=== PATIENT | male | born 1950 | race Caucasian/White ===

== ENCOUNTER 2017-10-27 09:48 | Emergency (ER) | payer MEDICARE, OTHER ==
[2017-10-27 10:20] LABS: #Basophils 0.1 thou/uL (0.0-0.2); #Eosinphils 0.2 thou/uL (0.0-0.7); #Lymphocytes 1.4 thou/uL (1.20-3.40); #Monocytes 0.6 thou/uL (0.11-0.59); #Neutrophils 4.6 thou/uL (1.40-6.50); %Basophils 1.5 % (0.0-1.0); %Eosinophils 2.6 % (0.0-10.0); %Lymphocytes 20.3 % (21.0-51.0); %Monocytes 8.2 % (0.0-10.0); %Neutrophils 67.4 % (42.0-75.0); Hemoglobin 15.3 g/dL (14.0-18.0); Mean Corpuscular HGB CONC 33.9 g/dL (32.0-36.0); Mean Corpuscular Hemoglobin 32.1 pg (27.0-31.0); Mean Corpuscular Volume 94.6 fL (78.0-98.0); Mean Platelet Volume 8.3 fL (7.4-10.4); Platelet Count 257 thou/uL (130-400); RBC Distribution Width 11.1 % (11.5-14.5); Red Blood Cell (RBC) Count 4.78 mill/uL (4.70-6.10); White Blood Cell (WBC) Count 6.8 thou/uL (4.8-10.8)
[2017-10-27 10:43] LABS: ALT (SGPT) 17 U/L (8-55); AST (SGOT) 21 U/L (5-34); Albumin 4.6 g/dL (3.4-4.8); Alkaline Phosphatase 64 U/L (40-150); Anion Gap 12 mmol/L (10-20); BUN (Urea Nitrogen) 29 mg/dL (8.4-25.7); Bilirubin, Total 0.7 mg/dL (0.2-1.2); Calc. Creatinine Clearance 0 mL/min (70-130); Calcium 9.2 mg/dL (7.8-10.44); Carbon Dioxide 27 mmol/L (23-31); Chloride 102 mmol/L (98-107); Estimated GFR-MDRD 67; Globulin 3.2 g/dL (2.4-3.5); Glucose 109 mg/dL (80-115); Potassium 4.4 mmol/L (3.5-5.1); Protein, Total 7.8 g/dL (5.8-8.1); Sodium 137 mmol/L (136-145)
== END 2017-10-27 11:30 | disposition home or self-care (01) ==
LOC: ERS 09:48
DX: K62.5 Hemorrhage of anus and rectum (principal); E11.9 Type 2 diabetes mellitus without complications; I10 Essential (primary) hypertension; Z87.891 Personal history of nicotine dependence
CPT/HCPCS: 36415; 80053; 82274; 85025; 86850; 86900; 86901; 99284

== ENCOUNTER 2020-10-20 16:07 | Outpatient (CLI) | payer MEDICARE | END 2020-10-20 16:08 | disposition home or self-care (01) | LOC: BICRAD 16:07 | PROVIDERS: ATTEND Obstetrics & Gynecology | DX: R05 Cough (principal) | CPT/HCPCS: 71046 ==

== ENCOUNTER 2020-12-22 08:03 | Outpatient (CLI) | payer MEDICARE | END 2020-12-22 08:04 | disposition home or self-care (01) | LOC: BICCT 08:03 | PROVIDERS: ATTEND Internal Medicine Pulmonary Disease | DX: J84.10 Pulmonary fibrosis, unspecified (principal); R59.0 Localized enlarged lymph nodes | CPT/HCPCS: 71250 ==

== ENCOUNTER 2021-01-02 05:33 | Inpatient (IN) | payer MEDICARE ==
[2021-01-02 06:12] LABS: #Basophils 0.1 thou/uL (0.0-0.2); #Lymphocytes 0.3 thou/uL (1.20-3.40); #Monocytes 0.6 thou/uL (0.11-0.59); #Neutrophils 8.7 thou/uL (1.40-6.50); %Basophils 0.7 % (0.0-1.0); %Eosinophils 0.3 % (0.0-10.0); %Lymphocytes 3.5 % (21.0-51.0); %Monocytes 6.3 % (0.0-10.0); %Neutrophils 89.2 % (42.0-75.0); Hemoglobin 15.2 g/dL (14.0-18.0); Mean Corpuscular HGB CONC 34.1 g/dL (32.0-36.0); Mean Corpuscular Volume 91.1 fL (78.0-98.0); Platelet Count 389 thou/uL (130-400); RBC Distribution Width 11.8 % (11.5-14.5); Red Blood Cell (RBC) Count 4.89 mill/uL (4.70-6.10); White Blood Cell (WBC) Count 9.7 thou/uL (4.8-10.8)
[2021-01-02 06:29] LABS: Actual Bicarbonate (HCO3a) 25.9 mEq/L (22-28); Analyzer IN Cardio ER; Base Excess (BEa) 0.1 mEq/L (-2.0 to +3.0); CO2 Tension 46.2 mmHg (35.0-45.0); Calcium, Ionized (arterial) 1.16 mmol/L (1.12-1.30); Carboxyhemoglobin (COHb) 0.6 gm% (0.0-3.0); Hemoglobin (Hb) 15.4 g/dL (14.0-18.0); O2 Tension (PaO2), arterial 63.6 mmHg (> 70.0); Potassium - ABG Lab 3.86 mmol/L (3.70-5.30); pH, Arterial 7.37 (7.35-7.45)
[2021-01-02 06:37] LABS: ALT (SGPT) 24 U/L (8-55); AST (SGOT) 45 U/L (5-34); Alkaline Phosphatase 76 U/L (40-110); Anion Gap 25 mmol/L (10-20); BUN (Urea Nitrogen) 25 mg/dL (8.4-25.7); Bilirubin, Total 0.6 mg/dL (0.2-1.2); Calc. Creatinine Clearance 0 mL/min (70-130); Calcium 9.8 mg/dL (7.8-10.44); Carbon Dioxide 25 mmol/L (23-31); Chloride 85 mmol/L (98-107); Globulin 2.8 g/dL (2.4-3.5); Glucose 112 mg/dL (83-110); Potassium 4.3 mmol/L (3.5-5.1); Protein, Total 6.8 g/dL (5.8-8.1); Sodium 131 mmol/L (136-145)
[2021-01-02 06:45] LABS: Puncture Site LRA
[2021-01-02] MEDS ORDERED: Cefepime 2 GM VIAL ONE (06:49)
[2021-01-02 07:21] LABS: SARS-CoV-2 NAA Rapid Test Not Detected (NotDetected)
[2021-01-02] MEDS ORDERED: Vancomycin 1 GM/200 ML BAG ONE (07:49)
[2021-01-02] MEDS ORDERED: GUAIFENESIN PO PRN (08:39)
[2021-01-02] MEDS ORDERED: [UNRECOGNIZED DRUG - OTHER] PO PRN (08:39)
[2021-01-02] MEDS ORDERED: CODEINE PHOSPHATE PO PRN (08:39)
[2021-01-02] MEDS ORDERED: guaiFENesin/Codeine 200 mg/20 mg 10 ml Cup PO PRN (08:43)
[2021-01-02] MEDS ORDERED: Dextrose 5% in Water 1,000 ML IV PRN (08:44)
[2021-01-02] MEDS ORDERED: HumaLOG 300 UNITS/3 ML VIAL SC PRN (08:44)
[2021-01-02] MEDS ORDERED: Ondansetron PF 4 MG/2 ML Vial IVP PRN (08:44)
[2021-01-02] MEDS ORDERED: Dextrose 50% Abboject 50 ML SYRINGE SLOW IVP PRN (08:44)
[2021-01-02] MEDS ORDERED: Acetaminophen 325 MG TAB PO PRN (08:44)
[2021-01-02] MEDS ORDERED: Non-Formulary Item 1 EACH (Benzonatate [Benzonatate] 200 MG Capsule) PO SCH (09:00)
[2021-01-02] MEDS ORDERED: Non-Formulary Item 1 EACH (Valsartan/Hydrochlorothiazide [Valsartan-Hctz 320-25 Mg Tab] 1 PO SCH (09:00)
[2021-01-02] MEDS ORDERED: Benzonatate 100 MG CAP ONE (09:08)
[2021-01-02] MEDS ORDERED: Enoxaparin Sodium 40 MG/0.4 ML SYRINGE ONE (09:08)
[2021-01-02 09:11] LABS: Lactic Acid 4.7 mmol/L (0.5-2.2)
[2021-01-02 09:13] LABS: Troponin I 0.017 ng/mL (< 0.028)
[2021-01-02] MEDS: Benzonatate 100 MG CAP PO SCH ×3 (09:17→20:40)
[2021-01-02] MEDS: Enoxaparin Sodium 40 MG/0.4 ML SYRINGE SC SCH (09:17)
[2021-01-02] MEDS ORDERED: Azithromycin 500 MG VIAL ONE (09:27)
[2021-01-02] MEDS: Hydrochlorothiazide 25 MG TAB PO SCH (09:31)
[2021-01-02] MEDS: Azithromycin 500 MG in Sodium Chloride 0.9% 250 ML 250 ML IVPB SCH (09:31)
[2021-01-02] MEDS: Valsartan 80 MG TAB PO SCH (09:31)
[2021-01-02] MEDS: NIFEdipine XL 60 MG TAB PO SCH (09:31)
[2021-01-02 11:48] LABS: Troponin I 0.025 ng/mL (< 0.028)
[2021-01-02] MEDS ORDERED: FLU VACC QS2021-22(65YR UP)/PF 240 MCG/0.7 ML SYRINGE IM ONE (13:15)
[2021-01-02] MEDS ORDERED: methylPREDNISolone Sod Succ/PF 125 MG/2 ML VIAL IVP SCH (16:00)
[2021-01-02 16:09] VITALS: BP 159/94
[2021-01-02] MEDS: metFORMIN 500 MG TAB PO SCH (17:08)
[2021-01-02] MEDS: methylPREDNISolone Sod Succ/PF 125 MG/2 ML VIAL IVP SCH (17:08)
[2021-01-02] MEDS: Vancomycin 1 GM in Premix Bag 1 BAG IVPB SCH (20:40)
[2021-01-02] MEDS: Cefepime 2 GM in Sodium Chloride 0.9% 100 ML IVPB SCH (21:17)
[2021-01-02] MEDS: Morphine 4 MG/ML VIAL SLOW IVP PRN (21:48)
[2021-01-03] MEDS: Morphine 4 MG/ML VIAL SLOW IVP PRN ×2 (02:12→19:37)
[2021-01-03] MEDS: methylPREDNISolone Sod Succ/PF 125 MG/2 ML VIAL IVP SCH ×2 (03:30→16:38)
[2021-01-03 03:54] LABS: #Lymphocytes 0.1 thou/uL (1.20-3.40); #Monocytes 0.1 thou/uL (0.11-0.59); %Basophils 0.7 % (0.0-1.0); %Lymphocytes 2.2 % (21.0-51.0); %Monocytes 1.7 % (0.0-10.0); %Neutrophils 95.4 % (42.0-75.0); Hemoglobin 14.3 g/dL (14.0-18.0); Mean Corpuscular Hemoglobin 31.3 pg (27.0-31.0); Mean Corpuscular Volume 92.3 fL (78.0-98.0); Mean Platelet Volume 6.8 fL (7.4-10.4); Platelet Count 364 thou/uL (130-400); RBC Distribution Width 11.8 % (11.5-14.5); Red Blood Cell (RBC) Count 4.56 mill/uL (4.70-6.10); White Blood Cell (WBC) Count 6.3 thou/uL (4.8-10.8)
[2021-01-03 04:17] LABS: Anion Gap 19 mmol/L (10-20); BUN (Urea Nitrogen) 23 mg/dL (8.4-25.7); Calc. Creatinine Clearance 124 mL/min (70-130); Calcium 9.6 mg/dL (7.8-10.44); Carbon Dioxide 24 mmol/L (23-31); Chloride 87 mmol/L (98-107); Glucose 143 mg/dL (83-110); Potassium 3.9 mmol/L (3.5-5.1); Sodium 126 mmol/L (136-145)
[2021-01-03] MEDS: metFORMIN 500 MG TAB PO SCH ×2 (09:25→16:35)
[2021-01-03] MEDS: Enoxaparin Sodium 40 MG/0.4 ML SYRINGE SC SCH (09:25)
[2021-01-03] MEDS: NIFEdipine XL 60 MG TAB PO SCH (09:26)
[2021-01-03] MEDS: Hydrochlorothiazide 25 MG TAB PO SCH (09:26)
[2021-01-03] MEDS: Vancomycin 1 GM in Premix Bag 1 BAG IVPB SCH ×2 (09:26→20:25)
[2021-01-03] MEDS: Valsartan 80 MG TAB PO SCH (09:26)
[2021-01-03] MEDS: Benzonatate 100 MG CAP PO SCH ×3 (09:26→20:25)
[2021-01-03] MEDS ORDERED: Metoprolol Tartrate 5 MG/5 ML VIAL ONE (09:27)
[2021-01-03] MEDS ORDERED: Metoprolol Tartrate 5 MG/5 ML VIAL IVP SCH (09:30)
[2021-01-03] MEDS ORDERED: Sodium Bicarbonate 2.5 MEQ/5 ML VIAL ONE (09:49)
[2021-01-03] MEDS ORDERED: Lidocaine 1% PF 5 ML VIAL ONE (09:49)
[2021-01-03] MEDS ORDERED: Diltiazem HCl SR 60 mg Capsule PO SCH ×2 (14:30→21:00)
[2021-01-03 14:56] LABS: Ref Lab Test Ordered MYOSITIS PANEL; Reference Lab Name LABCORP
[2021-01-03] MEDS: Cefepime 2 GM in Sodium Chloride 0.9% 100 ML IVPB SCH ×2 (15:22→23:03)
[2021-01-03] MEDS: Azithromycin 500 MG in Sodium Chloride 0.9% 250 ML 250 ML IVPB SCH (16:30)
[2021-01-03] MEDS: Rosuvastatin 10 MG TAB PO SCH (20:25)
[2021-01-04] MEDS: Morphine 4 MG/ML VIAL SLOW IVP PRN ×2 (03:05→16:52)
[2021-01-04] MEDS: methylPREDNISolone Sod Succ/PF 125 MG/2 ML VIAL IVP SCH ×2 (03:05→16:52)
[2021-01-04 03:45] LABS: #Lymphocytes 0.2 thou/uL (1.20-3.40); #Monocytes 0.5 thou/uL (0.11-0.59); #Neutrophils 11.5 thou/uL (1.40-6.50); %Basophils 0.4 % (0.0-1.0); %Lymphocytes 1.6 % (21.0-51.0); %Monocytes 3.7 % (0.0-10.0); %Neutrophils 94.3 % (42.0-75.0); Hemoglobin 14.2 g/dL (14.0-18.0); Mean Corpuscular HGB CONC 33.4 g/dL (32.0-36.0); Mean Corpuscular Volume 92.8 fL (78.0-98.0); Mean Platelet Volume 6.9 fL (7.4-10.4); Platelet Count 409 thou/uL (130-400); RBC Distribution Width 11.8 % (11.5-14.5); Red Blood Cell (RBC) Count 4.59 mill/uL (4.70-6.10); White Blood Cell (WBC) Count 12.2 thou/uL (4.8-10.8)
[2021-01-04 04:49] LABS: Anion Gap 22 mmol/L (10-20); BUN (Urea Nitrogen) 41 mg/dL (8.4-25.7); Calc. Creatinine Clearance 76 mL/min (70-130); Calcium 10.2 mg/dL (7.8-10.44); Carbon Dioxide 21 mmol/L (23-31); Chloride 88 mmol/L (98-107); Glucose 163 mg/dL (83-110); Magnesium 2.1 mg/dL (1.6-2.6); Potassium 4.2 mmol/L (3.5-5.1); Sodium 127 mmol/L (136-145)
[2021-01-04] MEDS: NIFEdipine XL 60 MG TAB PO SCH (07:34)
[2021-01-04] MEDS: Hydrochlorothiazide 25 MG TAB PO SCH (07:34)
[2021-01-04] MEDS: metFORMIN 500 MG TAB PO SCH ×2 (07:34→16:39)
[2021-01-04] MEDS: Benzonatate 100 MG CAP PO SCH ×3 (07:34→20:14)
[2021-01-04] MEDS: Valsartan 80 MG TAB PO SCH (07:34)
[2021-01-04] MEDS ORDERED: Sodium Chloride 0.9% 1,000 ML IV SCH ×2 (08:45→12:14)
[2021-01-04] MEDS: Pantoprazole 40 MG VIAL IVP SCH (09:42)
[2021-01-04] MEDS: Enoxaparin Sodium 40 MG/0.4 ML SYRINGE SC SCH (09:42)
[2021-01-04] MEDS: Cefepime 2 GM in Sodium Chloride 0.9% 100 ML IVPB SCH ×2 (09:42→20:14)
[2021-01-04] MEDS: Vancomycin 1 GM in Premix Bag 1 BAG IVPB SCH (10:46)
[2021-01-04 11:23] LABS: Vancomycin, Trough 15.7 ug/mL
[2021-01-04] MEDS ORDERED: Digoxin 0.5 MG/2 ML AMP SLOW IVP SCH ×2 (11:45→14:00)
[2021-01-04] MEDS ORDERED: Diltiazem 125 MG in Sodium Chloride 0.9% 100 ML IVPB SCH ×2 (12:15→17:15)
[2021-01-04] MEDS: Azithromycin 500 MG in Sodium Chloride 0.9% 250 ML 250 ML IVPB SCH (13:21)
[2021-01-04] MEDS: Vancomycin 1.5 GRAM/300 ML BAG 1.5 GM in Premix Bag 1 BAG IVPB SCH (15:00)
[2021-01-04] MEDS: Rosuvastatin 10 MG TAB PO SCH (20:14)
[2021-01-04] MEDS ORDERED: Vancomycin 1 GM in Premix Bag 1 BAG IVPB SCH (21:00)
[2021-01-05] MEDS: Morphine 4 MG/ML VIAL SLOW IVP PRN ×4 (00:19→12:43)
[2021-01-05] MEDS ORDERED: Naloxone HCl 0.4 mg/ml Vial ONE ×4 (02:47→03:00)
[2021-01-05] MEDS ORDERED: Naloxone HCl 2 MG in Sodium Chloride 0.9% 500 ML IV SCH (03:15)
[2021-01-05] MEDS: methylPREDNISolone Sod Succ/PF 125 MG/2 ML VIAL IVP SCH (03:18)
[2021-01-05] MEDS: Naloxone HCl 2 MG, Admixture Fee 1 EACH in Sodium Chloride 0.9% 500 ML IV PRN ×2 (03:32→06:35)
[2021-01-05 03:45] LABS: #Lymphocytes 0.2 thou/uL (1.20-3.40); #Monocytes 0.9 thou/uL (0.11-0.59); #Neutrophils 17.1 thou/uL (1.40-6.50); %Eosinophils 0.1 % (0.0-10.0); %Monocytes 5.1 % (0.0-10.0); %Neutrophils 93.9 % (42.0-75.0); Hemoglobin 14.1 g/dL (14.0-18.0); Mean Corpuscular HGB CONC 33.2 g/dL (32.0-36.0); Mean Corpuscular Hemoglobin 31.3 pg (27.0-31.0); Mean Corpuscular Volume 94.2 fL (78.0-98.0); Platelet Count 446 thou/uL (130-400); Red Blood Cell (RBC) Count 4.52 mill/uL (4.70-6.10); White Blood Cell (WBC) Count 18.2 thou/uL (4.8-10.8)
[2021-01-05 04:03] LABS: Digoxin 0.83 ng/mL (0.8-2.0)
[2021-01-05 04:21] LABS: Anion Gap 23 mmol/L (10-20); BUN (Urea Nitrogen) 66 mg/dL (8.4-25.7); Calc. Creatinine Clearance 36 mL/min (70-130); Calcium 10.2 mg/dL (7.8-10.44); Carbon Dioxide 21 mmol/L (23-31); Chloride 91 mmol/L (98-107); Glucose 157 mg/dL (83-110); Magnesium 2.6 mg/dL (1.6-2.6); Potassium 4.7 mmol/L (3.5-5.1); Sodium 130 mmol/L (136-145)
[2021-01-05 04:36] LABS: Actual Bicarbonate (HCO3v) 21 mEq/L (22-28); Base Excess -12.7 mEq/L (-2.0 to +3.0); Calcium, Ionized (venous) 1.28 mmol/L (1.16-1.32); Chloride (VBG) 90 mmol/L (98-106); Hemoglobin (Hb) 14.3 g/dL (12.6-17.4); Potassium (VBG) 6.23 mmol/L (3.70-5.30); Sodium 130.1 mmol/L (133-146)
[2021-01-05 04:39] LABS: pH (venous) 6.99 (7.32-7.43)
[2021-01-05 08:01] VITALS: TEMP 98.3
[2021-01-05] MEDS: metFORMIN 500 MG TAB PO SCH (08:28)
[2021-01-05] MEDS: Benzonatate 100 MG CAP PO SCH (08:28)
[2021-01-05] MEDS: Hydrochlorothiazide 25 MG TAB PO SCH (08:28)
[2021-01-05] MEDS ORDERED: Digoxin 0.5 MG/2 ML AMP SLOW IVP SCH (09:00)
[2021-01-05] MEDS: Enoxaparin Sodium 40 MG/0.4 ML SYRINGE SC SCH (09:15)
[2021-01-05] MEDS: Cefepime 2 GM in Sodium Chloride 0.9% 100 ML IVPB SCH (09:15)
[2021-01-05] MEDS: Pantoprazole 40 MG VIAL IVP SCH (09:15)
[2021-01-05 09:18] VITALS: BMI 34.4
[2021-01-05] MEDS ORDERED: Sodium Chloride 0.9% 500 ML IV SCH (10:30)
[2021-01-05] MEDS: Azithromycin 500 MG in Sodium Chloride 0.9% 250 ML 250 ML IVPB SCH (10:53)
[2021-01-05] MEDS: Vancomycin 1.5 GRAM/300 ML BAG 1.5 GM in Premix Bag 1 BAG IVPB SCH (11:00)
[2021-01-05] MEDS: Lorazepam 2 MG/ML VIAL SLOW IVP PRN ×2 (11:51→12:26)
[2021-01-06] MEDS ORDERED: Cefepime 2 GM in Sodium Chloride 0.9% 100 ML IVPB SCH (08:00)
[2021-01-06] MEDS ORDERED: Enoxaparin Sodium 30 MG/0.3 ML SYRINGE SC SCH (09:00)
== END 2021-01-05 13:03 | disposition expired | DRG 853 ==
LOC: SUATTDRO 05:33 → ERS 05:33 → ERHOLD 07:08 → IMCU/EMU 12:06
PROVIDERS: ADMIT Internal Medicine; ATTEND Internal Medicine
PROC: 5A0945A Assistance with Respiratory Ventilation, 24-96 Consecutive Hours, High Flow/Velocity Cannula (ICD-10-PCS; 2021-01-02)
PROC: 07B23ZX Excision of Left Neck Lymphatic, Percutaneous Approach, Diagnostic (ICD-10-PCS; principal; 2021-01-03)
PROC: 5A09357 Assistance with Respiratory Ventilation, Less than 24 Consecutive Hours, Continuous Positive Airway Pressure (ICD-10-PCS; 2021-01-05)
DX: A41.50 Gram-negative sepsis, unspecified (principal); Z66 Do not resuscitate; Z20.822 Contact with and (suspected) exposure to COVID-19; Z51.5 Encounter for palliative care; J96.21 Acute and chronic respiratory failure with hypoxia; J15.6 Pneumonia due to other Gram-negative bacteria; R65.21 Severe sepsis with septic shock; E87.1 Hypo-osmolality and hyponatremia; I47.1 Supraventricular tachycardia; C34.92 Malignant neoplasm of unspecified part of left bronchus or lung; E87.2 Acidosis; J84.10 Pulmonary fibrosis, unspecified; E11.9 Type 2 diabetes mellitus without complications; I10 Essential (primary) hypertension; I48.0 Paroxysmal atrial fibrillation; Z99.81 Dependence on supplemental oxygen; Z87.891 Personal history of nicotine dependence; Z28.21 Immunization not carried out because of patient refusal; Z79.899 Other long term (current) drug therapy; Z79.84 Long term (current) use of oral hypoglycemic drugs; Z98.890 Other specified postprocedural states; E78.00 Pure hypercholesterolemia, unspecified; Z82.49 Family history of ischemic heart disease and other diseases of the circulatory system
CPT/HCPCS: 36415; 36416; 36600; 38505; 71045; 80048; 80053; 80162; 80202; 82805; 83605; 83735; 83880; 84145; 84484; 85025; 87040; 88184; 88305; 88312; 88333; 88341; 88342; 93005; 94640; 94660; 94760; 96365; 96366; 96367; C9113; J0456; J0692; J1160; J1650; J1815; J2060; J2270; J2310; J2930; J3370; J3490; J7030; J7050; J7620; U0002